=== PATIENT | male | born 1940 | race Caucasian/White ===

== ENCOUNTER 2017-04-29 13:41 | Outpatient (CLI) | payer OTHER ==
--- NOTE | 2017-04-30 10:08 | Diagnostic Imaging Report ---
Indications: Back pain, right lower extremity weakness, prostate cancer Technique: Sagittal STIR, sagittal and axial T1, T2, and T1 fat-saturated fast spin echo sequences of the thoracic spine were performed prior to IV gadolinium administration. Sagittal and axial T1-weighted fat-saturated fast spin-echo sequences performed following IV gadolinium administration. Findings: Comparison: None Images degraded by motion and poor [id number] ratio. Expansile enhancing mass involves the T1 vertebral body and possibly right posterior elements, extending into the epidural space of the spinal canal at this level, partially and possibly completely surrounding and compressing the thecal sac and spinal cord. The spinal canal measures approximately 5-6 mm narrowest AP diameter at this level. There is suggestion of associated cord signal change at this level but this cannot be confirmed. Extension of process into paraspinous soft tissues also suspected. The T9 vertebral body demonstrates more diffuse signal change, T1 hypointense, STIR hyperintense, and mildly enhancing. No obvious posterior element involvement, bone destruction, expansion of the spinal canal or paraspinous soft tissues. No significant vertebral body height loss. Spinal canal normal caliber area no cord compression or cord signal change. 2 cm circumscribed, rounded focus of signal changes present within the T5 vertebral body, fat-isointense on all imaging sequences and nonenhancing. No associated destruction. Similar smaller lesions in additional vertebral bodies. Additional linearly oriented foci of signal change adjacent to multiple intervertebral disc spaces, most prominently at T2-3, T3-4, T6-7, and T8-9. These and other intervertebral discs demonstrate varying degrees of decreased height with mild annular bulge at several levels. No spinal stenosis, cord compression, significant rash or recess or neural foraminal narrowing results. Remainder of the spinal cord below the T1 level demonstrates normal configuration and signal characteristics. 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 Associated cord signal change suggestive but not confirmed. Characterization of anatomy/pathology at this level is limited due to technical factors described. T9 vertebral body signal change, nonspecific, may represent neoplasm, early acute compression fracture, or both. No evidence of bone destruction/extension into spinal canal. Multiple vertebral body hemangiomas, largest and most prominent at T5 Multilevel degenerative disc disease with Modic type degenerative marrow signal changes, annular disc bulges. No obvious neural impingement.. This correlates with [facility] preliminary report.
--- NOTE | 2017-04-30 10:08 | Diagnostic Imaging Report ---
Indications: Neck pain, right lower extremity weakness, prostate cancer Technique: Sagittal STIR and T1 weighted FLAIR, axial cosmic aspir, sagittal and axial T2 weighted fast spin echo and T1-weighted fat-saturated fast spin-echo sequences of the cervical spine were performed prior to IV gadolinium administration. Sagittal and axial T1-weighted fat-saturated fast spin-echo sequences performed following IV gadolinium administration. Findings: Comparison: None Image quality substantially degraded by motion and poor [id number] ratio The C1-C2 level is unremarkable. Occipital-C1 and C1-2 alignments are intact. Spinal canal, lateral recesses and neural foramina are normal in caliber. No abnormal enhancement. The C2-C3 disc decreased in height and signal. Circumferential annular bulge with anterior marginal osteophyte formation.. Facet joints hypertrophied. Spinal canal, lateral recesses normal caliber. Neural foramina mildly to moderately narrowed, right greater than left. No abnormal enhancement.. The C3-C4 disc decreased in height and signal. Circumferential annular bulge with marginal osteophyte formation. Suggestion of superimposed broad-based protrusion at left posterolateral margin.. Facet joints and ligamenta flava hypertrophied, left greater than right. Spinal canalnarrowed to 10 mm AP diameter. Left lateral recess moderately narrowed. Bilateral neural foramina mildly moderately narrowed, left greater than right. No abnormal enhancement. The C4-C5 disc decreased in height and signal. Circumferential annular bulge with anterior marginal osteophyte formation. Facet joints hypertrophied, right greater than left.. Spinal canalnarrowed to 10 mm AP diameter. Lateral recesses mildly narrowed bilaterally. Neural foramina moderately narrowed bilaterally, left greater than right. No abnormal enhancement. The C5-C6 disc decreased in height and signal. Circumferential annular bulge with marginal osteophyte formation. Facet joints hypertrophied.. Spinal canalnarrowed to 9 mm AP diameter. Lateral recesses mildly narrowed bilaterally. Neural foramina moderately narrowed bilaterally, right greater than left. No abnormal enhancement.. The C6-C7 disc diffuse height and signal. Circumferential annular bulge with anterior marginal osteophyte formation.. Facet joints and ligamenta flava hypertrophied.. Spinal canalnarrowed to 9 mm AP diameter. Lateral recesses mildly narrowed. Neural foramina moderately narrowed, right greater than left. No abnormal enhancement.. The C7-T1 disc decreased in height and signal. No significant annular bulge/protrusion or marginal osteophyte formation. Facet joints and ligamenta flava are unremarkable. Spinal canal, lateral recesses and neural foramina are normal in caliber. No abnormal enhancement. Mass involving the T1 vertebral body is poorly demonstrated but demonstrates posterior expansion of versus extension through the posterior vertebral body margin into the spinal canal, resulting in narrowing of the canal to approximately 7 mm AP diameter and compression of the spinal cord. Intrinsic abnormality the cord is indeterminate at this level. Spinal cord above this level is normal in configuration and signal characteristics. No additional intradural or extradural masses or fluid collections are demonstrated. The cervical vertebrae are normal in configuration and marrow signal characteristics , aside from degenerative changes described above. No fracture, lytic destruction, additional bony lesions, or other acute process is demonstrated. Paraspinous soft tissues at the T1 level are inadequately demonstrated, above this level are unremarkable. IMPRESSION: T1 vertebral body mass extending into spinal canal resulting in spinal stenosis and significant cord compression, poorly evaluated on this exam but suspect neoplasm Multilevel degenerative disc disease, facet and ligamentous hypertrophy as descri -- bed in detail level by level above. This results in multilevel mild spinal stenosis, variable lateral recess and neural foraminal narrowing. No cord compression results. Nerve root impingement not excludable. Correlate clinically. This correlates with [facility] preliminary report.
== END 2017-04-29 15:09 | disposition home or self-care (01) ==
LOC: MRI 13:41
DX: G95.20 Unspecified cord compression (principal)
CPT/HCPCS: 72156; 72157; A9585